=== PATIENT | female | born 1980 | race Caucasian/White ===

== ENCOUNTER 2017-01-16 20:29 | Emergency (ER) | payer OTHER ==
[~2017-01-16] VITALS: Ht 157.5 cm; Wt 109.1 kg
[~2017-01-16 20:29] MED LIST: AGM875 PO; BCPILLS PO; OXYC1TAB3 PO
[2017-01-16 20:34] VITALS: Ht 157.5 cm; Wt 109.1 kg
[2017-01-16] MEDS ORDERED: SODIUM CHLORIDE 0.9% 1000ML 1,000 ML IV STA (21:02)
[2017-01-16] MEDS ORDERED: BACL10TA PO (21:22)
[2017-01-16] MEDS ORDERED: LEVO25TA PO (21:22)
[2017-01-16] MEDS ORDERED: HYDR-3126 PO (21:22)
[2017-01-16] MEDS ORDERED: GABA-112 PO (21:22)
[2017-01-16] MEDS ORDERED: OPTIRAY 320 IV PRN (21:30)
[2017-01-16 21:47] LABS: BASO % 0.4 %; BASO ABS # 0.05 K/uL (0-0.2); COMPLETE YES; EOS % 1.6 %; IG% 0.3 %; LYMPH % 23.9 %; LYMPH ABS # 2.68 K/uL (1.2-3.4); MEAN CELL VOLUME 92.2 fL (80-100); MEAN CORPUSCULAR HEMOGLOBIN 30.3 pg (25-34); MEAN CORPUSCULAR HGB CONC 32.8 g/dl (32-36); MEAN PLATELET VOLUME 10.3 fL (7.4-10.4); MONO % 4.8 %; PLATELET COUNT 341 K/uL (130-400); RED BLOOD COUNT 4.23 M/uL (4.2-5.4); WHITE BLOOD COUNT 11.22 K/uL (4.8-10.8)
[2017-01-16 21:58] LABS: INR 0.9 (0.9-1.1); PROTHROMBIN TIME (PATIENT) 9.9 SECONDS (9.0-12.0)
--- NOTE | 2017-01-16 22:05 | DIAGNOSTIC IMAGING REPORT ---
TWO VIEW CHEST CLINICAL HISTORY: Cough and fever. FINDINGS: PA and lateral chest radiographs are obtained. No prior studies are available for comparison at the time of dictation. The cardiomediastinal silhouette is unremarkable. The lungs and pleural spaces are clear. There is no pneumothorax. The bony thorax appears intact. Cholecystectomy clips are seen in the right upper quadrant. IMPRESSION: No active disease in the chest. Electronically signed by: Hang Dasilva M.D. 01/16/2017 10:03 PM Dictated Date/Time: 01/16/2017 10:03 PM
[2017-01-16 22:06] LABS: ALT/SGPT 22 U/L (12-78); BLOOD UREA NITROGEN 16 mg/dl (7-18); BUN/CREATININE RATIO 23.2 (10-20); CARBON DIOXIDE 28 mmol/L (21-32); CHLORIDE 104 mmol/L (98-107); CREATININE 0.69 mg/dl (0.60-1.20); GLUCOSE 85 mg/dl (70-99); POTASSIUM 3.6 mmol/L (3.5-5.1); SODIUM 140 mmol/L (136-145)
[2017-01-16 22:09] LABS: ALKALINE PHOSPHATASE 84 U/L (45-117); AST/SGOT 24 U/L (15-37)
[2017-01-16 22:15] VITALS: TEMP 36.9
[2017-01-16 22:28] LABS: CALCIUM 9.1 mg/dl (8.5-10.1)
[2017-01-16 22:37] LABS: LYME DISEASE AB IGG NEG (NEG); LYME DISEASE AB IGM NEG (NEG)
[2017-01-17] MEDS ORDERED: AMOXICILLIN/CLAVULANATE TAB 875 MG TAB PO ONE
[2017-01-17] MEDS ORDERED: AMOX875T PO (00:08)
[2017-01-17 00:43] VITALS: BP 119/62; PULSE 78; O2SAT 98
--- NOTE | 2017-01-17 01:04 | EMERGENCY ROOM VISIT NOTE ---
History Report prepared by Pete: Anh Ceja Under the Supervision of: Dr. Lennox Ngo M.D. First contact with patient: 20:43 Chief Complaint: OTHER COMPLAINT Stated Complaint: SWALLON LYMPH NODE History of Present Illness The patient is a 36 year old female who presents to the Emergency Room with complaints of worsening left-sided neck edema that started 3-4 weeks ago. The patient is also experiencing pain in the area of the edema. She states that she went to [facility] to be evaluated. She tested negative for mono there. They recommended coming into the ED for further evaluation since her mother has a history of lymphoma. The patient states that she was evaluated by her PCP and had an outpatient ultrasound of her neck done 2 weeks ago. She states that she never received the results from it. She is also experiencing sinus congestion, rhinorrhea, and an occasional cough. However, the patient states that she has seasonal allergies so she is unsure of if the sinus congestion is secondary to that. The patient is also experiencing generalized body aches, increased fatigue , and increased irritability. Additionally, she states that she is experiencing fevers but she has not taken her temperature. She states that she can feel when she has a high temperature and she states that she experienced chills upon arrival to the ED. The patient is also experiencing a sore throat and states that it hurts to swallow. She denies any rash. The patient denies any recent exposure to mumps. The patient also denies any recent tick bites. She denies any chance of . Source of History: patient Onset: 3-4 weeks ago Position: neck (left side) Quality: other (left-sided neck edema) Timing: worsening Associated Symptoms: + chills, + cough (occasional), + fatigue, + fevers, + neck pain (left-sided), + sorethroat (hurts to swallow) Note: sinus congestion, rhinorrhea, generalized body aches, increased irritability Review of Systems See HPI for pertinent positives & negatives. A total of 10 systems reviewed and were otherwise negative. Past Medical & Surgical Medical Problems: (1) Asthma Family History Lymphoma Social History Smoking Status: Never Smoker Marital Status: single Occupation Status: employed Current/Historical Medications Scheduled Amoxicillin & Pot Clavulanate (Augmentin 875-125 mg), 875 MG PO BID Baclofen (Lioresal), 1-2 TABS PO TID Gabapentin (Neurontin), 200 MG PO TID Levothyroxine Sodium (Synthroid), 25 MCG PO DAILY Scheduled PRN Hydroxyzine Hcl (Atarax), 1 TAB PO TID PRN for Anxiety Allergies Coded Allergies: NSAIDs (Verified Allergy, Intermediate, ANAPHYLAXIS, 01/16/17) Physical Exam Vital Signs Date Time Temp Pulse Resp B/P Pulse Ox O2 Delivery O2 Flow Rate FiO2 01/17/17 00:43 78 16 119/62 98 Room Air 01/16/17 23:25 76 16 12/66 96 Room Air 01/16/17 22:15 36.9 80 18 112/62 97 Room Air 01/16/17 20:34 36.7 74 18 125/85 95 Room Air Physical Exam Constitutional: Vital signs reviewed. Eyes: Pupils are equal round reactive to light. Conjunctiva are noninjected. ENT: Pharynx is diffusely erythematous without exudate. Mucous membranes are moist. Neck is supple without meningeal signs and has left anterior cervical lymphadenopathy. Respiratory: Clear to auscultation bilaterally. Breath sounds are equal bilaterally. Cardiovascular: Regular rate and rhythm. No rubs or gallops. GI: Soft, nondistended and nontender. No organomegaly. Bowel sounds are present. Musculoskeletal: No peripheral edema. No lower extremity tenderness. Integumentary: No cyanosis. Neurological: The patient is awake and alert. No focal deficits. Psychiatric: Normal affect. Medical Decision & Procedures ER Provider Diagnostic Interpretation: X-ray results as stated below per interpretation by me and the radiologist and CT results per statrad interpretation: TWO VIEW CHEST FINDINGS: PA and lateral chest radiographs are obtained. No prior studies are available for comparison at the time of dictation. The cardiomediastinal silhouette is unremarkable. The lungs and pleural spaces are clear. There is no pneumothorax. The bony thorax appears intact. Cholecystectomy clips are seen in the right upper quadrant. IMPRESSION: No active disease in the chest. Electronically signed by: Hang Dasilva M.D. 01/16/2017 10:03 PM Dictated Date/Time: 01/16/2017 10:[address] NECK: STATRAD IMPRESSION: No prior. No abscess is seen. Left submandibular gland appears slightly prominent compared to the right. Query sialadenitis. No epiglottis. Suspect reactive nodes. Right mastoidectomy. Laboratory Results 01/16/17 21:20 Red Blood Count 4.23, Mean Corpuscular Volume 92.2, Mean Corpuscular Hemoglobin 30.3, Mean Corpuscular Hemoglobin Concent 32.8, Mean Platelet Volume 10.3, Neutrophils (%) (Auto) 69.0, Lymphocytes (%) (Auto) 23.9, Monocytes (%) (Auto) 4.8, Eosinophils (%) (Auto) 1.6, Basophils (%) (Auto) 0.4, Neutrophils # (Auto) 7.74, Lymphocytes # (Auto) 2.68, Monocytes # (Auto) 0.54, Eosinophils # (Auto) 0.18, Basophils # (Auto) 0.05 01/16/17 21:20 Test 01/16/17 21:20 01/16/17 21:25 01/16/17 21:35 01/17/17 00:05 White Blood Count 11.22 K/uL (4.8-10.8) Red Blood Count 4.23 M/uL (4.2-5.4) Hemoglobin 12.8 g/dL (12.0-16.0) Hematocrit 39.0 % (37-47) Mean Corpuscular Volume 92.2 fL (80-100) Mean Corpuscular Hemoglobin 30.3 pg (25-34) Mean Corpuscular Hemoglobin Concent 32.8 g/dl (32-36) Platelet Count 341 K/uL (130-400) Mean Platelet Volume 10.3 fL (7.4-10.4) Neutrophils (%) (Auto) 69.0 % Lymphocytes (%) (Auto) 23.9 % Monocytes (%) (Auto) 4.8 % Eosinophils (%) (Auto) 1.6 % Basophils (%) (Auto) 0.4 % Neutrophils # (Auto) 7.74 K/uL (1.4-6.5) Lymphocytes # (Auto) 2.68 K/uL (1.2-3.4) Monocytes # (Auto) 0.54 K/uL (0.11-0.59) Eosinophils # (Auto) 0.18 K/uL (0-0.5) Basophils # (Auto) 0.05 K/uL (0-0.2) RDW Standard Deviation 44.0 fL (36.4-46.3) RDW Coefficient of Variation 13.1 % (11.5-14.5) Immature Granulocyte % (Auto) 0.3 % Immature Granulocyte # (Auto) 0.03 K/uL (0.00-0.02) Prothrombin Time 9.9 SECONDS (9.0-12.0) Prothromb Time International Ratio 0.9 (0.9-1.1) Activated Partial Thromboplast Time 26.1 SECONDS (21.0-31.0) Partial Thromboplastin Ratio 1.0 Anion Gap 8.0 mmol/L (3-11) Est Creatinine Clear Calc Drug Dose 129.9 ml/min Estimated GFR () 128.9 Estimated GFR (Non- 111.2 BUN/Creatinine Ratio 23.2 (10-20) Calcium Level 9.1 mg/dl (8.5-10.1) Total Bilirubin 0.3 mg/dl (0.2-1) Direct Bilirubin < 0.1 mg/dl (0-0.2) Aspartate Amino Transf (AST/SGOT) 24 U/L (15-37) Alanine Aminotransferase (ALT/SGPT) 22 U/L (12-78) Alkaline Phosphatase 84 U/L (45-117) Total Protein 7.8 gm/dl (6.4-8.2) Albumin 3.7 gm/dl (3.4-5.0) Lyme Disease IgG Antibody NEG (NEG) Lyme Disease IgM Antibody NEG (NEG) Monoscreen NEG (NEG) Urine Test NEG (NEG) Influenza Type A Antigen Neg for Influ A (NEG) Influenza Type B Antigen Neg for Influ B (NEG) Laboratory results as reviewed by me. Medications Administered Medications (Trade) Dose Ordered Sig/Ewa Route Start Time Stop Time Status Last Admin Dose Admin Sodium Chloride (Nss 1000ml) 1,000 ml @ 999 mls/hr Q1H1M STAT IV 01/16/17 21:02 01/16/17 22:02 DC 01/16/17 21:30 999 MLS/HR Amoxicillin/ Clavulanate Potassium (Augmentin Tab) 875 mg NOW ONCE PO 01/17/17 00:00 01/17/17 00:01 DC 01/17/17 00:16 875 MG ED Course 2045: The patient was evaluated in room B10. A complete history and physical exam was performed. 2100: The patient's rapid strep test was negative. 2101: Ordered Sodium Chloride 1000 ml @ 999 mls/hr IV 0: I reassessed the patient and updated her on her test results. She is waiting to have her CT scan done. 2338: I reevaluated the patient and updated her again. We are waiting on her CT results. 2351: Upon reevaluation, the patient appeared to have improvement of her symptoms. She informed that her symptoms have been going on longer than 3 weeks and she denies any exposure to mumps. I discussed tonmargaret's findings with her. She verbalized agreement of the treatment plan. She was discharged home. 0000: Ordered Augmentin Tab 875 mg PO Medical Decision This is a 36-year-old female who presents with pain to her left neck with swelling and flulike symptoms. Differential diagnosis includes infectious mononucleosis, Lyme disease, sialoadenitis, lymphoma, influenza, viral syndrome. I did perform a limited focused review of portions of the patient's old chart on the electronic medical record. The patient has had no recent pertinent visits to this hospital. Medication Reconciliation: I attest that I have personally reviewed the patient' s current medication list. Blood Pressure Screening: Patient was found to have normal blood pressure on screening and does not require follow-up. I did evaluate the patient as noted above. IV access was established. I did order and personally review the patient's chest x-ray as described above. I did order and review the patient's blood work as noted in the electronic medical record. Lyme testing is negative. Monospot is negative. Rapid flu test was negative. After discussion with the patient, I did order a CT of the neck. I did review the images myself as well as the radiology report as described above. She has inflammation of the submandibular gland on the left side with reactive lymphadenopathy. I did discuss the test results with the patient. She has no known exposure to months. She does work at [employer] and there have not been any cases of mumps that she knows of. I did test her for mumps but I think her symptoms are more likely consistent with sialoadenitis. I did treat the patient with Augmentin. She was advised follow with her doctor and/or ENT. She was discharged with a prescription for Augmentin. Impression Primary Impression: Sialoadenitis of submandibular gland Scribe Attestation The scribe's documentation has been prepared under my direct and personally reviewed by me in its entirety. I confirm that the note above accurately reflects all work, treatment, procedures, and medical decision making performed by me. Departure Information Dispostion Home / Self-Care Prescriptions Amoxicillin & Pot Clavulanate (Augmentin 875-125 mg) 1 Tab Tab 875 MG PO BID for 10 Days, #20 TAB Prov: Lennox Ngo M.D. 01/17/17 Referrals No Doctor, Assigned (PCP) Forms HOME CARE DOCUMENTATION FORM, IMPORTANT VISIT INFORMATION, WORK / SCHOOL INSTRUCTIONS Patient Instructions ED Submandibular Gland Infec, My [facility] Additional Instructions You have been examined and treated today on an emergency basis only. This is not a substitute for, or an effort to provide, complete comprehensive medical care. It is impossible to recognize and treat all injuries or illnesses in a single emergency department visit. It is therefore important that you follow up closely with your physician and/or Dr. Fox of the ENT. Call as soon as possible for an appointment. Return for worsening symptoms or if you develop fever, vomiting, difficulty breathing or any other concerning symptoms.
--- NOTE | 2017-01-17 06:30 | DIAGNOSTIC IMAGING REPORT ---
CT SOFT TISSUE NECK WITH CT DOSE: 587.51 mGy.cm CLINICAL HISTORY: Left neck pain and swelling. TECHNIQUE: Axial images of the neck were obtained following intravenous injection of 119 cc Optiray 320 IV. COMPARISON STUDY: None. FINDINGS: Visualized portions of the brain are unremarkable. There is no abscess within the neck. The parotid glands are normal. There is slight asymmetric increased attenuation of the left submandibular gland when compared to the right. There is no adjacent infiltration. There are no enlarged cervical lymph nodes. Lung apices are clear. Thyroid gland is unremarkable by CT. There is no soft tissue gas within. Epiglottis is normal. Note is made of a right mastoidectomy. IMPRESSION: 1. No abscess within the neck. 2. Asymmetric increased attenuation of the left submandibular gland which is nonspecific but could reflect sialoadenitis. No adjacent infiltration. Electronically signed by: Glynn Aceves M.D. 01/17/2017 6:29 AM Dictated Date/Time: 01/17/2017 6:25 AM
[2017-01-21 16:34] LABS: EBV EARLY ANTIGEN AB <0.91 INDEX
== END 2017-01-17 00:45 | disposition home or self-care (01) ==
LOC: C.EDB 20:31
DX: K11.20 Sialoadenitis, unspecified (principal); J45.909 Unspecified asthma, uncomplicated; Z79.899 Other long term (current) drug therapy; Z80.7 Family history of other malignant neoplasms of lymphoid, hematopoietic and related tissues